=== PATIENT | male | born 1970 | race Two or more races ===

== ENCOUNTER 2018-11-03 16:25 | Emergency (ER) | payer MEDICAID ==
[~2018-11-03] VITALS: Ht 172.7 cm; Wt 72.6 kg
--- NOTE | 2018-11-03 16:38 | NUR ---
PT BIBRA FROM THE STREET FOR ETOH; PT AWAKE, ABLE TO MAKE NEEDS KNOWN; RESPIRATIONS EVEN AND UNLABORED, NO SOB, NAD NOTED, VSS, TO BED ER 13, AWAITING ER PROVIDER RUDY
[2018-11-03 17:16] LABS: BASOPHILS # (AUTO) 0.1 /CMM (0.0-0.2); BASOPHILS % (AUTO) 1.2 % (0.0-2.0); EOSINOPHILS % (AUTO) 2.8 % (0.0-6.0); HEMATOCRIT 39 % (39-51); HEMOGLOBIN 13.2 g/dL (13.5-17.5); LYMPHOCYTES # (AUTO) 2.4 /CMM (0.8-4.8); LYMPHOCYTES % (AUTO) 41.8 % (20.0-44.0); MEAN CORPUSCULAR HGB CONC 34 g/dl (31.0-36.0); MEAN CORPUSCULAR VOLUME 103 fL (80-96); MONOCYTES # (AUTO) 0.6 /CMM (0.1-1.30); MONOCYTES % (AUTO) 10.2 % (2.0-12.0); NEUTROPHILS # (AUTO) 2.5 /CMM (1.8-8.9); PLATELET COUNT (AUTO) 213 /CMM (150-450); RED BLOOD CELL COUNT(AUTO) 3.76 MIL/uL (4.5-6.0); WHITE BLOOD COUNT (AUTO) 5.6 K/uL (4.3-11.0)
[2018-11-03 17:27] LABS: CALCIUM, SERUM 8.6 mg/dL (8.5-10.1); CARBON DIOXIDE 25 mmol/L (21-32); CHLORIDE 105 mmol/L (98-107); CREATININE 0.6 mg/dL (0.6-1.3); GLUCOSE 96 mg/dL (74-106); POTASSIUM 3.5 mmol/L (3.5-5.1); SODIUM SERUM 143 mmol/L (136-145); UREA NITROGEN, BLOOD 5 mg/dL (7-18)
[2018-11-03 17:35] LABS: ALANINE AMINOTRANSFERASE 30 U/L (12-78); ALBUMIN 3.5 g/dL (3.4-5.0); ALCOHOL, BLOOD 324 mg/dL (0-0); ALKALINE PHOSPHATASE 96 U/L (46-116); ASPARTATE AMINOTRANSFERASE 39 U/L (15-37); BILIRUBIN,DIRECT 0.1 mg/dL (0.0-0.2); BILIRUBIN,TOTAL 0.3 mg/dL (0.2-1.0); SALICYLATE 4.2 mg/dL (2.8-20.0); TOTAL PROTEIN, SERUM 7.7 g/dL (6.4-8.2)
[2018-11-03 17:38] LABS: ACETAMINOPHEN < 2 ug/ml (10-30)
--- NOTE | 2018-11-03 19:40 | NUR ---
PT EATING DINNER AT THIS TIME
--- NOTE | 2018-11-03 21:11 | NUR ---
PT UNABLE TO GIVE URINE SAMPLE AT THIS TIME; TREY ASHLEY MADE AWARE, IF PT CANNOT GIVE URINE, IT
[2018-11-03] MEDS ORDERED: LIDOCAINE 1% INJ 50 ML MDV IJ ONE (21:47)
--- NOTE | 2018-11-03 22:25 | NUR ---
Patient is resting comfortably in bed with eyes closed. Easily aroused. VSS
[2018-11-04 00:13] VITALS: BP 127/71
--- NOTE | 2018-11-04 00:13 | NUR ---
Patient discharged to home in stable condition. Written and verbal after care instructions given. Patient verbalizes understanding of instruction. pt walked out with steady gait
== END 2018-11-04 00:15 | disposition home or self-care (01) ==
LOC: ER 16:28
DX: F10.129 Alcohol abuse with intoxication, unspecified (principal); S09.8XXA Other specified injuries of head, initial encounter; M25.561 Pain in right knee; R94.31 Abnormal electrocardiogram [ECG] [EKG]; Z59.0 Homelessness; W18.39XA Other fall on same level, initial encounter; Y93.89 Activity, other specified; Y92.89 Other specified places as the place of occurrence of the external cause; Y99.8 Other external cause status; Y90.8 Blood alcohol level of 240 mg/100 ml or more
CPT/HCPCS: 36415; 70450; 72125; 73560; 80048; 80076; 80329; 82962; 85025; 93005; 99284; A4606; A6402; G0480 ×2; J3490; Z7610